=== PATIENT | female | born 1995 | race Caucasian/White ===

== ENCOUNTER 2024-04-02 08:05 | Day surgery (SDC) | payer MEDICAID, SELFPAY ==
--- NOTE | 2024-03-31 15:59 | PCM.HP.BLA ---
History and Physical Date of Admission: 04/02/24 Expand All Collapse AllExpand All by Default Pre-Op History and Physical HPI: The patient is a 29 year old female presenting for pre-operative visit. - pt c/o urinary frequency and mild pain on urination for last 5 days and vaginal burning just on outside of vagina. Just recently treated for BV. Pt reports no vaginal odor. No changes in soaps or detergents. No changes in sexual partner. No vaginal lesions. Pt reports is using monistat with some improvement in symptoms. She is scheduled for laparoscopic bilateral salpingectomy, for desires sterilization on 04/02/24. Procedure discussed along with risks, benefits and complications. Other alternatives discussed for management. Consent form signed? Yes. PAST MEDICAL HISTORY PAST MEDICAL HISTORY Diagnosis Date ? IUD (intrauterine device) in place 06/13/2014 ParaGard ? Malpositioned IUD 04/2015 removed in ED, Dianne Croft PAST SURGICAL HISTORY PAST SURGICAL HISTORY Procedure Laterality Date ? NONE CURRENT MEDICATIONS Current Outpatient Medications Medication Sig Dispense Refill ? Norethindrone, Contraceptive, 0.35 mg tablet Take 1 tablet by mouth once daily. 90 tablet 3 No current facility-administered medications for this visit. ALLERGIES: Patient has no known allergies. PERSONAL HISTORY: SOCIAL HISTORY Social History Tobacco Use ? Smoking status: Never ? Smokeless tobacco: Never Vaping Use ? Vaping status: Never Used Substance Use Topics ? Alcohol use: No ? Drug use: No FAMILY HISTORY: FAMILY HISTORY FAMILY HISTORY Problem Relation Age of Onset ? Hypertension Father ? No Known Problems Sister ? No Known Problems Brother ? Alzheimer's Disease Maternal Grandmother REVIEW OF SYMPTOMS: negative except as noted above PHYSICAL EXAMINATION: VITALS: Blood pressure 114/80, pulse 102, height 149.9 cm (4' 11), weight 76.2 kg (168 lb), last menstrual period 03/06/2024, SpO2 98%. GENERAL: The patient is well nourished, well hydrated in no acute distress. , The patient is oriented to time, place, and person. NECK: full range of motion LUNGS: Clear to auscultation bilaterally. no wheezes, rhonchi or rales HEART: Regular rate and rhythm, Normal heart sounds, and No murmurs or gallops Assessment & Plan Sterilization consult Pre op completed today. Consent signed. Pt has been counseled on risks/benefits and alternatives of surgery including but not limited to anesthesia, bleeding, infection, injury to pelvic structures including bowel, bladder, ureters and vessels. Pt wishes to proceed with surgery at this time. Pre and post op instructions reviewed. Urinary frequency Orders: ? URINE CULTURE ? UA DIP, URINE (POC) ? Dysuria Orders: ? URINE CULTURE ? UA DIP, URINE (POC) ? Vaginal irritation If worsening symptoms notify office. ? PLAN: Laparoscopic bilateral salpingectomy I have reviewed and updated past medical and surgical history, medications and allergies Medical Decision Making: Problems: Low: Acute, uncomplicated illness or injury Data: Unique test(s) ordered: 2 Risk: Moderate: Decision on minor surgery w/ risk factors Medical Decision Making Level: 3 - Low Kaylah Barbosa MD Office Visit on 03/15/2024 Note shared with patient
[2024-04-02] VITALS (8 sets, daily range): BP systolic 106–117; BP diastolic 68–89; PULSE 65–86; RESP 16–18; TEMP 36.2–36.6; O2SAT 94–100; BMI 34.2
[2024-04-02 08:26] LABS: Internal QC Validated? YES +Cl - CLEAR BKGD; Pregnancy, Urine Negative Negative
--- NOTE | 2024-04-02 08:29 | PRE.ANES_ITS ---
ASA Classification* ASA Classification ASA Classification: 2 (SEE WRITTEN PRE ANESTHESIA RECORD FOR FULL ASSESSMENT) Assessment & Plan Anesthesia* Anesthesia Assessment Anesthesia Assessment: Discussed sedation and/or anesthesia options, risks, benefits, and alternatives with patient/parents/legal guardian/POA. Questions invited. The patient/parents/legal guardian/POA seems to understand and agrees to proceed with anesthesia plan. Reviewed the physical assessment, medical history, allergy history and patient home medications list prior to surgery/procedure/anesthetic and documented any changes. Performed airway and anesthesia risk assessments. 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 When Was Last Pacemaker Check QUESTION #4 FULL TEXT: You/Your Family Experience fever (hyperthermia) with Anesthesia Last Oral Intake Last Oral intake: Last Oral Intake NPO since Meds taken in AM with sips of water? Meds patient instructed to take am of surgery PONV PONV - retail sales vitamin consultant: PONV - retail sales vitamin consultant Female Yes 03/18/24 15:30 HX of Motion Sickness No 03/18/24 15:30 HX of N/V After Surgery No 03/18/24 15:30 Non-Smoker Yes 03/18/24 15:30 Duration of Surgery greater No 03/18/24 15:30 than 60 minutes Number of Risk Factors 2 03/18/24 15:30 PONV Score Moderate Risk 03/18/24 15:30 Respiratory Assessment Respiratory Assessment - retail sales vitamin consultant: Respiratory Tract Infection Hx - retail sales vitamin consultant Hx Respiratory Tract Infection No 03/18/24 15:30 STOP Sleep Apnea STOP Sleep Apnea - retail sales vitamin consultant: STOP Sleep Apnea - retail sales vitamin consultant Hx Hypertension No 03/18/24 15:30 Hx Sleep Apnea No 03/18/24 15:30 CPAP BIPAP Do you snore loudly (louder No 03/18/24 15:30 than talking or can be heard Do you often feel tired/ No 03/18/24 15:30 fatigued/ sleepy during daytime? Has anyone observed you stop No 03/18/24 15:30 breathing during sleep? STOP Results Negative 03/18/24 15:30 QUESTION #5 FULL TEXT : Do you snore loudly (louder than talking or can be heard through closed doors)? Tobacco Use History Tobacco Use History - retail sales vitamin consultant: Tobacco Use History - retail sales vitamin consultant Tobacco Use Smoking Status Never smoker 03/18/24 15:30 Hx Tobacco Use No 03/18/24 15:30 Years Smoking Packs Smoked per Day Smoking Cessation Date was within the last 15 years Hx Smoking Cessation Date Hx Smoking Cessation Counseling Hematologic Medial History Hematologic Hx - retail sales vitamin consultant: Hematologic Medical Hx - clinical informatics director Hx of Blood Transfusion No 03/18/24 15:30 Hx of Transfusion in last 3 No 03/18/24 15:30 Months Date of Last Transfusion (if within last 3 months) Ever experience any problems No 03/18/24 15:30 with transfusion(s)? Specify any problems Hx of Preganancy in last 3 No 03/18/24 15:30 Months Nurse Filling Out Transfusion DSCHRIBER 03/18/24 15:30 & Questions: Date: 03/18/24 03/18/24 15:30 Time: 15:31 03/18/24 15:30 Patient unable to answer at this time (ie. confused, unrespo /Reproduction History /Reproductive History - retail sales vitamin consultant: /Reproductive Hx- retail sales vitamin consultant Hx Now No 03/18/24 15:30 Gestational Age (in weeks): EDC: Hx Hx Para Hx Section SAB No 03/18/24 15:30 PFSH Medical History Wears glasses Non-smoker Home Medications ?Medication ?Instructions ?Recorded ?Last Taken ?Type amoxicillin 500 mg tablet 500 mg PO TID 03/18/24 Unknown History norethindrone (contraceptive) 0.35 0.35 mg PO DAILY 03/18/24 Unknown History mg tablet Allergy/AdvReac Type Severity Reaction Status Date / Time No Known Allergies Allergy Verified 03/18/24 15:28 Surgical History No history of previous surgery Social History Smoking Status: Never smoker Review of Systems (Anesthesia) ROS Narrative System reviewed and no additional complaints, except as documented.
[2024-04-02] MEDS: Lactated Ringers 1,000 ML 15 ML IV (08:53)
[2024-04-02 08:57] LABS: Hematocrit 38.9 % (37-47); Hemoglobin 12.9 g/dL (12.0-15.0); Mean Corp Hgb Conc 33.2 g/dL (32-36); Mean Corpuscular Hgb 27.9 pg (27.0-32.0); Mean Platelet Vol. 10.5 fl (6.2-12.0); Platelet Count 341 K/mm3 (150-450); RBC Distribution Width CV 12.5 % (11.6-14.6); RBC Distribution Width SD 37.7 fl (35.1-43.9); Red Blood Count 4.63 M/mm3 (4.2-5.4); White Blood Count 5.8 K/mm3 (4.4-11.0)
--- NOTE | 2024-04-02 10:00 | DCINST_ITS ---
Discharge Instructions Diet Discharge Diet: No restrictions Activity May resume sexual activity in: 2 weeks Lifting Restrictions: 20-25 lbs Dressing / Incision Call your doctor if your incision/area has: Continuous Slow Oozing, Sudden Increased Bleeding, Increased Pain/ Swelling, Increased Redness, Foul Smelling Discharge and Swelling at the incision site Call your doctor if you observe: Fever of 101 or Higher, Inability to urinate, Inability to have a bowel movement, Using more than 1 pad per hour and Uncontrolled pain Additional Dressing/Incision Instructions:: You have skin glue over your incision sites, do not pick off. You may shower and let the soap and water run over the incision sites and dab dry. Follow Up Care Please Follow Up With: Kaylah Horan MD When: 1-2 weeks post OP if you need an appointment please call [phone] Test Results: Test results from this visit will be discussed in further detail at your follow- up appointment, if applicable. Discharge Plan Admission Attending Provider: Kaylah Horan Primary Care Provider: Care Physician,No Primary Instructions Print Language: [place] Discharge Orders/Prescriptions Prescriptions: No Action norethindrone (contraceptive) 0.35 mg tablet 0.35 mg PO DAILY Disposition Disposition (needs filled in before D/C Order can be placed): Home, Self Care
--- NOTE | 2024-04-02 10:01 | OP.PCM_ITS ---
Operative Report (Standard) Operative Information Surgery/Procedure Performed: laparoscopic bilateral salpingectomy Surgeon: Kaylah Horan Date of Procedure: 04/02/24 Procedure Start Time: 10:13 Procedure Stop Time: 10:39 Pre-Operative Diagnosis: desires sterilization Post-Operative Diagnosis: same Select all DRAINS/GRAFTS/IMPLANTS that apply: None Type of Anesthesia: General and Local Estimated Blood Loss: <5cc Fluids Replaced: 700 Specimen collected: Yes Description of specimen(s) removed: bilateral fallopian tubes Description of surgery: After informed consent was obtained patient was taken to the operating room she was placed in supine position she was given anesthesia. She was then placed in the [facility] stirrups and she was prepped and draped in normal sterile fashion. Bladder was drained prior to the start of procedure. At this time attention was turned to the vaginal portion where weighted speculum placed at posterior fornix vagina single-tooth tenaculum was used to gently grasp the inte rnal the cervix. uterus was gently sounded to approximately 8cm. Uterine manipulator was placed without difficulty. Legs then placed in parallel with the abdomen the tenaculum and the weighted speculum were removed. 2 towel clamps were placed at level of umbilicus. Marcaine was injected infraumbilical and a small incision was made. The 5 mm trocar was placed under direct visualization. CO2 gas was used to insufflate the intra-abdominal cavity. Upon inspection no gross abnormalities appreciated- the uterus tubes and ovaries appeared to be normal. At this time then the LLQ and RLQ ports were placed First Marcaine was injected and small incision was made a knife and the 5 mm trocars were placed. At this time then tubes were traced back to the fimbriated ends. Enseal was used to coagulate and ligate along mesosalpinx bilaterally until tubes removed completely. Good hemostasis was appreciated. At this time procedure was deemed complete successful. The gas was desufflated on from the intra-abdominal cavity. The trochars were removed. Skin was closed using 4-0 Monocryl in a subcutaneous fashion. Dermabond glue was placed. Instrument lap and needle counts were correct ?2. The uterine manipulator was removed. Vaginal sweep was performed it was negative. There were no complications anticipated normal postoperative course for this patient. Tex Aviles MS3 scrubbed for case. Assisted with camera manipulation. Surgical Findings: normal tubes and ovaries bilaterally. Bearing Grinder core feeder: No Complications Complications: No Admit VTE Documentation VTE Present on Admission: Yes VTE Mechan Device Prophylaxis: SCD's VTE Pharm Prophylaxis ordered?: No Reason prophylaxis not ordered: Treatment Not Indicated
[2024-04-02] MEDS: Bupivacaine 0.25% 30 ML Vial (10:18)
--- NOTE | 2024-04-02 10:30 | FALS_PTH ---
PATIENT: [place] LOC: [facility] [place] U#:[id number] AGE/SX: 29/F ROOM: RE04/02/[address]: Dr. Kaylah Horan, MDDOB: 1995 BED: DIS: 04/02/2024 SPEC #: [id number] RECD: 04/04/24 14:43 STATUS: SHAWN OWEN #: [id number] TERESA: 04/02/24 10:[address]: Kaylah Horan DEPT: SURGICAL PATHOLOGY RECD BY: Alberto Brar ENTERED: 04/05/24 07:25 SP TYPE: FALL TUBES OTHR DR: No Primary Care Phys Tissues: Fallopian tube Procedures: Surgery Specimen Level II HEADER OPERATION: Laparoscopic bilateral salpingectomy PRE-OP DIAGNOSIS: Desires sterilization TISSUE SUBMITTED: Bilateral fallopian tubes MICROSCOPIC DIAGNOSIS Bilateral fallopian tubes, salpingectomy: Bilateral fallopian tubes, no pathologic diagnosis. A paratubal cyst. SJ: 04/06/2024 MICROSCOPIC DESCRIPTION Slides are reviewed. GROSS DESCRIPTION Received in fixative is one container labeled with the patient's name and designated bilateral fallopian tubes. The specimen consists of bilateral fallopian tubes including fimbrial ends measures 7.5cm in length and 1.0cm in diameter and 8.0 cm in length and 0.9 cm in diameter. Two detached pieces of fallopian tube are also noted measuring in aggregate 1.5 x 1.5 x 0.5cm. One of the fallopian tubes also show a paratubal cyst measuring 1.0cm in greatest dimension. The cyst is filled with clear fluid. The fallopian tubes are not identified as right or left. Sections reveal unremarkable cut surfaces. Floor Finisher sections are submitted in two cassettes: 1- one fallopian tube and paratubal cyst, 2- second fallopian tube. / SJ: 04/05/2024 TC:5 CPT: 77913 x2
--- NOTE | 2024-04-02 10:48 | PCM.POST.ANE ---
Anesthesia: Postop Eval I Current Vital Signs Temperature: 97.2 F Pulse Rate: 86 Blood Pressure: 109/68 Respiratory Rate: 18 Pulse Ox: 98 Oxygen Delivery Method: Room Air Assessment Airway patent: Yes Spontaneous unlabored respirations: Yes Mental status: Awake and Calm nausea: No Vomiting: No Anesthesia Complication: No Fluid Hydration Crystalloid volume administer (ml): 700 Total IV fluid infused: 700 Progress Note Anesthesia document: Postop Eval 1 completed: Yes
--- NOTE | 2024-04-02 11:18 | POSTOPAN2_ITS ---
Anesthesia Postop Eval I Sum Postop Eval Completion status Anesthesia document: Postop Eval 1 completed: Yes Anesthesia Postop Eval I Summary Anesthesia Postop Eval I Summary: Anesthesia Postop Eval I: Assessment Summary Airway patent Yes 04/02/24 10:50 SURGICAL ASST.SKOBY Spontaneous unlabored Yes 04/02/24 10:50 SURGICAL ASST.CRISTELA respirations Mental status Awake,Calm 04/02/24 10:50 SURGICAL ASST.BUDOBBlank nausea No 04/02/24 10:50 SURGICAL ASST.BUDOBBlank Vomiting No 04/02/24 10:50 SURGICAL ASST.CRISTELA Anesthesia Postop Eval I: Fluid Summary Crystalloid volume administer 700 04/02/24 10:50 SURGICAL ASST.BUDOBY (ml) Colloids volume administered ( ml) Blood Product volume administered (ml) Total IV fluid infused 700 04/02/24 10:50 SURGICAL ASST.CRISTELA Anesthesia Postop Eval I: Summary Notes Anesthesia Complication No 04/02/24 10:50 SURGICAL ASST.CRISTELA Anesthesia Complication Comment: Post-operative progress note Anesthesia: Postop Eval II Evaluation Mental status: Awake Pain Level: 0 nausea: No Vomiting: No
--- NOTE | 2024-04-02 11:18 | PCM.POSTANE2 ---
Anesthesia Postop Eval I Sum Postop Eval Completion status Anesthesia document: Postop Eval 1 completed: Yes Anesthesia Postop Eval I Summary Anesthesia Postop Eval I Summary: Anesthesia Postop Eval I: Assessment Summary Airway patent Yes 04/02/24 10:50 FLIGHT ATTENDANT INFLIGHT SERVICES.SKOBY Spontaneous unlabored Yes 04/02/24 10:50 FLIGHT ATTENDANT INFLIGHT SERVICES.CRISTELA respirations Mental status Awake,Calm 04/02/24 10:50 FLIGHT ATTENDANT INFLIGHT SERVICES.BUDOBBlank nausea No 04/02/24 10:50 FLIGHT ATTENDANT INFLIGHT SERVICES.BUDOBBlank Vomiting No 04/02/24 10:50 FLIGHT ATTENDANT INFLIGHT SERVICES.CRISTELA Anesthesia Postop Eval I: Fluid Summary Crystalloid volume administer 700 04/02/24 10:50 FLIGHT ATTENDANT INFLIGHT SERVICES.BUDOBY (ml) Colloids volume administered ( ml) Blood Product volume administered (ml) Total IV fluid infused 700 04/02/24 10:50 FLIGHT ATTENDANT INFLIGHT SERVICES.CRISTELA Anesthesia Postop Eval I: Summary Notes Anesthesia Complication No 04/02/24 10:50 FLIGHT ATTENDANT INFLIGHT SERVICES.CRISTELA Anesthesia Complication Comment: Post-operative progress note Anesthesia: Postop Eval II Evaluation Mental status: Awake Pain Level: 0 nausea: No Vomiting: No
== END 2024-04-02 12:55 | disposition home or self-care (01) ==
LOC: SDC 08:07 → AC 08:09
PROVIDERS: Referring Provider Obstetrics & Gynecology; Visit Provider Obstetrics & Gynecology
PROC: (CPT 58661; principal; 2024-04-02 10:15)
DX: Z30.2 Encounter for sterilization (principal); N83.8 Other noninflammatory disorders of ovary, fallopian tube and broad ligament
CPT/HCPCS: 58661; 00840; 81025; 85027; 88302; J7120; C1760; J2405